=== PATIENT | female | born 1985 | race Two or more races ===

== ENCOUNTER 2022-04-14 07:13 | Emergency (ER) | payer MEDICAID, OTHER ==
[~2022-04-14] VITALS: Ht 157.5 cm; Wt 77.2 kg
[2022-04-14 08:28] LABS: Basophils # (auto) 0 10 ^3/uL (0-0.2); Basophils % (auto) 0.2 % (0.0-2.0); Eosinophils # (auto) 0.1 10 ^3/uL (0-0.8); Eosinophils % (auto) 0.6 % (0.0-7.0); Hematocrit 36.9 % (36.0-46.0); Lymphocytes # (auto) 1.1 10 ^3/uL (0.4-5.4); Lymphocytes % (auto) 9.8 % (10.0-50.0); Mean Corpuscular Hemoglobin 30.4 pg (28.0-32.0); Mean Corpuscular Hgb Conc. 32.5 g/dL (32.0-36.0); Mean Corpuscular Volume 93.6 fL (80.0-100.0); Monocytes # (auto) 0.7 10 ^3/uL (0-1.3); Monocytes % (auto) 6.3 % (0.0-12.0); Neutrophils # (auto) 9.2 10 ^3/uL (1.6-8.6); Neutrophils % (auto) 83.1 % (37.0-80.0); Red Blood Cells 3.94 10^6/uL (4.0-5.20); Red Cell Distribution Width 13.8 % (11.8-14.3)
[2022-04-14 09:07] LABS: Chloride 111 mmol/L (98-107); Potassium 4.1 mmol/L (3.5-5.1); Sodium 142 mmol/L (136-145)
[2022-04-14 09:13] LABS: Salicylate 2.1 mg/dL (2.8-20.0)
[2022-04-14 09:14] LABS: Alanine Aminotransferase 82 U/L (13-56); Albumin 3.8 g/dL (3.4-5.0); Alkaline Phosphatase 90 U/L (45-117); Anion Gap 7 (5-15); Aspartate Aminotransferase 23 U/L (15-37); BUN/Creatinine Ratio 23.7; Bilirubin, Total 0.2 mg/dL (0.2-1.0); Blood Alcohol < 3.0 mg/dL (0-5); Blood Urea Nitrogen 22 mg/dL (7-18); Calcium 8.7 mg/dL (8.5-10.1); Carbon Dioxide 24 mmol/L (21-32); GFR African American 86 mL/min; GFR Non-African American 71 mL/min; Glucose 103 mg/dL (74-106); Magnesium 2.3 mg/dL (1.6-2.6); Total Protein 7.1 g/dL (6.4-8.2)
[2022-04-14 09:28] LABS: Acetaminophen < 2.0 ug/mL (10-30)
[2022-04-14 11:05] LABS: Urine Bacteria NONE SEEN /hpf (None Seen); Urine Blood 1+ /uL (Negative); Urine Mucus FEW (None Seen); Urine Specific Gravity 1.028 (1.001-1.035); Urine WBC 3 /hpf (0 - 5)
[2022-04-14 11:37] LABS: Amphetamine Screen, Urine NEGATIVE (NEGATIVE); Barbiturate Scree,Urine NEGATIVE (NEGATIVE); Benzodiazephine Screen, Urine NEGATIVE (NEGATIVE); Cannabinoid Screen, Urine NEGATIVE (NEGATIVE); Cocaine Screen, Urine NEGATIVE (NEGATIVE); Opiate Scree,Urine NEGATIVE (NEGATIVE); Phencyclidine Screen, Urine NEGATIVE (NEGATIVE)
[2022-04-14 12:31] LABS: Albumin 3.6 g/dL (3.4-5.0); Calcium 8.4 mg/dL (8.5-10.1); Potassium 3.9 mmol/L (3.5-5.1)
[2022-04-14 12:35] LABS: BUN/Creatinine Ratio 25.7; Bilirubin, Total 0.3 mg/dL (0.2-1.0); Total Protein 6.7 g/dL (6.4-8.2)
[2022-04-14] MEDS: QUEtiapine FUMARATE 100 MG TAB PO SCH (18:28)
[2022-04-14] MEDS ORDERED: ACETAMINOPHEN 325 MG TAB PO ONE (21:00)
[2022-04-14] MEDS ORDERED: lamoTRIgine 100 MG TAB PO SCH (22:00)
[2022-04-14] MEDS ORDERED: lamoTRIgine 100 MG TAB PO ONE (22:00)
[2022-04-14] MEDS: OXcarbazepine 300 MG TAB PO SCH (22:24)
[2022-04-14] MEDS: lamoTRIgine 100 MG TAB PO SCH (22:24)
[2022-04-15] MEDS ORDERED: IBUPROFEN 400 MG TAB PO ONE (03:30)
[2022-04-15] MEDS ORDERED: KETOROLAC TROMETH 60MG/2ML VIAL IM ONE (08:45)
[2022-04-15] MEDS: OXcarbazepine 300 MG TAB PO SCH ×2 (10:08→21:41)
[2022-04-15] MEDS: VENLAFAXINE HCL 37.5mg XR cap PO SCH (10:26)
[2022-04-15] MEDS ORDERED: LORazepam 0.5 MG TAB PO ONE (16:45)
[2022-04-15] MEDS: QUEtiapine FUMARATE 100 MG TAB PO SCH (19:31)
[2022-04-15] MEDS ORDERED: HYDROcodone-ACET 5/325MG TAB PO ONE (21:30)
[2022-04-15] MEDS: lamoTRIgine 100 MG TAB PO SCH (21:38)
[2022-04-16] MEDS ORDERED: HYDROcodone-ACET 5/325MG TAB PO ONE ×2 (10:15→17:30)
[2022-04-16] MEDS ORDERED: LORazepam 0.5 MG TAB PO ONE ×2 (10:15→17:30)
[2022-04-16] MEDS: OXcarbazepine 300 MG TAB PO SCH ×2 (10:20→22:24)
[2022-04-16] MEDS: VENLAFAXINE HCL 37.5mg XR cap PO SCH (13:35)
[2022-04-16] MEDS: QUEtiapine FUMARATE 100 MG TAB PO SCH (20:09)
[2022-04-16] MEDS: lamoTRIgine 100 MG TAB PO SCH (22:18)
[2022-04-17 08:26] VITALS: BP 130/77
[2022-04-17] MEDS: VENLAFAXINE HCL 37.5mg XR cap PO SCH ×2 (09:39→09:50)
[2022-04-17] MEDS: OXcarbazepine 300 MG TAB PO SCH (09:39)
[2022-04-17] MEDS ORDERED: HYDROcodone-ACET 5/325MG TAB PO ONE (09:45)
== END 2022-04-17 16:10 | disposition left against medical advice (07) ==
LOC: EDBD 07:13 → ER 07:13
DX: T50.902A Poisoning by unspecified drugs, medicaments and biological substances, intentional self-harm, initial encounter (principal); R07.89 Other chest pain; Z20.822 Contact with and (suspected) exposure to COVID-19; Y92.89 Other specified places as the place of occurrence of the external cause
CPT/HCPCS: 36415; 80053; 80307; 80320; 80329; 81001; 81025; 83735; 85025; 87426; 93005; 99285; J1885